=== PATIENT | female | born 1945 | race Caucasian/White ===

== ENCOUNTER 2024-03-26 18:58 | Inpatient (IN) | payer MEDICARE ==
[2024-03-26] MEDS ORDERED: EPINEPHrine 1 MG/ML VIAL ONE (19:02)
[2024-03-26] MEDS ORDERED: DOPamine/D5W 400 mg/250 ml PREMIX ONE (19:06)
[2024-03-26] MEDS ORDERED: Atropine Sulfate 1 mg/10 ml Syringe ONE (19:06)
[2024-03-26] MEDS ORDERED: Lidocaine 1% PF 5 ML VIAL ONE (19:31)
[2024-03-26] MEDS ORDERED: Ondansetron PF 4 MG/2 ML Vial ONE ×2 (19:52→22:13)
[2024-03-26] MEDS ORDERED: Aspirin Chewable 81 MG TAB ONE (19:52)
[2024-03-26 20:03] LABS: #Basophils 0.05 10x3/uL (0.0-0.2); %Basophils 0.5 % (0.0-1.0); %Eosinophils 0.9 % (0.0-10.0); %Lymphocytes 20.8 % (21.0-51.0); %Monocytes 5.7 % (0.0-10.0); %Neutrophils 71.7 % (42.0-75.0); Hematocrit 39.2 % (36.0-47.0); Hemoglobin 12.8 g/dL (12.0-16.0); Mean Corpuscular HGB CONC 32.7 g/dL (32.0-36.0); Platelet Count 241 10x3/uL (130-400); RBC Distribution Width 14.5 % (11.5-14.5); Red Blood Cell (RBC) Count 4.26 mill/uL (4.20-5.40)
[2024-03-26 20:23] LABS: ALT (SGPT) 39 U/L (8-55); AST (SGOT) 35 U/L (5-34); Albumin 3.5 g/dL (3.4-4.8); Alkaline Phosphatase 89 U/L (40-110); Anion Gap 15 mmol/L (10-20); BUN (Urea Nitrogen) 16 mg/dL (9.8-20.1); Bilirubin, Total 0.4 mg/dL (0.2-1.2); Calc. Creatinine Clearance 0 mL/min (70-130); Calcium 8.7 mg/dL (7.8-10.44); Carbon Dioxide 21 mmol/L (23-31); Chloride 106 mmol/L (98-107); Estimated GFR 61; Globulin 2.9 g/dL (2.4-3.5); Glucose 193 mg/dL (83-110); Potassium 3.5 mmol/L (3.5-5.1); Protein, Total 6.4 g/dL (5.8-8.1); Sodium 138 mmol/L (136-145)
[2024-03-26 20:34] LABS: Troponin I 0.776 ng/mL (< 0.028)
[2024-03-26] MEDS ORDERED: Aspirin 300 MG Suppository ONE (20:40)
[2024-03-26] MEDS ORDERED: Heparin 25,000 units/D5W 0 ML ONE (20:40)
[2024-03-26 21:03] LABS: Magnesium 1.8 mg/dL (1.6-2.6)
[2024-03-26 21:52] LABS: Prothrombin Time 13.2 sec (12.0-14.7)
[2024-03-26 21:53] LABS: PTT 32.8 sec (22.9-36.1)
[2024-03-26] MEDS ORDERED: Acetaminophen 650 MG/20.3 ML UDCUP PO PRN (22:48)
[2024-03-26] MEDS ORDERED: Electrolyte Replacement Protocol 1 EACH IVPB SCH (22:48)
[2024-03-26] MEDS ORDERED: Acetaminophen 650 MG Suppository PR PRN (22:48)
[2024-03-26] MEDS ORDERED: Ondansetron ODT 4 MG TAB PO PRN (22:51)
[2024-03-26] MEDS ORDERED: DOBUTamine 500 mg/250 ml 250 ML IVPB SCH (23:30)
[2024-03-27 00:29] VITALS: BMI 33.7
[2024-03-27 00:37] LABS: Troponin I 0.927 ng/mL (< 0.028)
[2024-03-27] MEDS: Dextrose 5%-Lactated Ringers 1,000 ML IV SCH (00:59)
[2024-03-27] MEDS: DOPamine 400 MG/D5W 250 ML 250 ML IVPB SCH (01:11)
[2024-03-27 02:43] LABS: Troponin I 0.941 ng/mL (< 0.028)
[2024-03-27] MEDS: Promethazine HCl 12.5 MG in Sodium Chloride 0.9% 50 ML IVPB PRN (03:04)
[2024-03-27] MEDS ORDERED: Dextrose 50% Abboject 50 ML SYRINGE SLOW IVP PRN (04:37)
[2024-03-27] MEDS ORDERED: Glucagon 1 MG/ML KIT IM PRN (04:37)
[2024-03-27] MEDS ORDERED: Dextrose 5% in Water 1,000 ML IV PRN (04:37)
[2024-03-27 05:10] LABS: Anion Gap 19 mmol/L (10-20)
[2024-03-27 05:13] LABS: BUN (Urea Nitrogen) 21 mg/dL (9.8-20.1); Calc. Creatinine Clearance 32 mL/min (70-130); Calcium 8.7 mg/dL (7.8-10.44); Carbon Dioxide 20 mmol/L (23-31); Chloride 106 mmol/L (98-107); Estimated GFR 26; Glucose 268 mg/dL (83-110); Sodium 141 mmol/L (136-145)
[2024-03-27] MEDS: Ondansetron PF 4 MG/2 ML Vial IVP PRN (05:23)
[2024-03-27] MEDS: Insulin Lispro 100 UNIT/ML 10 ML VIAL SC PRN (05:27)
[2024-03-27] MEDS: Acetaminophen 650 MG Suppository PR PRN (05:30)
[2024-03-27 05:42] LABS: #Basophils Less than 0.03 10x3/uL (0.0-0.2); #Eosinphils Less than 0.03 10x3/uL (0.0-0.7); %Basophils 0.1 % (0.0-1.0); %Lymphocytes 9.2 % (21.0-51.0); %Monocytes 6.2 % (0.0-10.0); Hematocrit 38.6 % (36.0-47.0); Hemoglobin 12.4 g/dL (12.0-16.0); Mean Corpuscular HGB CONC 32.1 g/dL (32.0-36.0); Mean Corpuscular Hemoglobin 29.5 pg (27.0-31.0); Mean Corpuscular Volume 91.9 fL (78.0-98.0); Mean Platelet Volume 9.6 fL (7.4-10.4); Platelet Count 299 10x3/uL (130-400); RBC Distribution Width 14.6 % (11.5-14.5)
[2024-03-27] MEDS: Lactated Ringer's 1,000 ML IV SCH (06:35)
[2024-03-27] MEDS: Famotidine/PF 20 mg/2ml Vial SLOW IVP SCH (08:27)
[2024-03-27] MEDS: Magnesium 2 GM/50 ML(in water) 2 GM in Premix 1 BAG IVPB SCH (08:27)
[2024-03-27] MEDS ORDERED: CEFAZOLIN 1 GM VIAL ONE (09:26)
[2024-03-27] MEDS ORDERED: Gentamicin 80 MG/2 ML VIAL ONE (09:26)
[2024-03-27] MEDS ORDERED: CEFAZOLIN 2 GM VIAL ONE (09:27)
[2024-03-27] MEDS ORDERED: Midazolam HCl 2 mg/2 ml Vial ONE (10:31)
[2024-03-27] MEDS: Pantoprazole 40 MG VIAL IVP SCH (13:19)
[2024-03-27] MEDS: Haloperidol Lactate 5 MG/ML VIAL IM SCH ×2 (18:22→20:53)
[2024-03-27] MEDS: diphenhydrAMINE 50 MG/ML VIAL IVP SCH (22:31)
[2024-03-28] MEDS: Haloperidol Lactate 5 MG/ML VIAL IM SCH (01:01)
[2024-03-28 05:09] LABS: #Basophils Less than 0.03 10x3/uL (0.0-0.2); #Eosinphils Less than 0.03 10x3/uL (0.0-0.7); %Basophils 0.2 % (0.0-1.0); %Eosinophils 0.1 % (0.0-10.0); %Lymphocytes 14.2 % (21.0-51.0); %Monocytes 7.6 % (0.0-10.0); %Neutrophils 77.6 % (42.0-75.0); Hematocrit 33.7 % (36.0-47.0); Hemoglobin 11.1 g/dL (12.0-16.0); Mean Corpuscular HGB CONC 32.9 g/dL (32.0-36.0); Mean Corpuscular Hemoglobin 29.8 pg (27.0-31.0); Mean Corpuscular Volume 90.6 fL (78.0-98.0); Mean Platelet Volume 9.3 fL (7.4-10.4); Platelet Count 181 10x3/uL (130-400); RBC Distribution Width 14.5 % (11.5-14.5); Red Blood Cell (RBC) Count 3.72 mill/uL (4.20-5.40)
[2024-03-28 05:48] LABS: Anion Gap 13 mmol/L (10-20); BUN (Urea Nitrogen) 28 mg/dL (9.8-20.1); Calc. Creatinine Clearance 43 mL/min (70-130); Calcium 8.5 mg/dL (7.8-10.44); Carbon Dioxide 23 mmol/L (23-31); Chloride 108 mmol/L (98-107); Estimated GFR 35; Glucose 102 mg/dL (83-110); Potassium 4.2 mmol/L (3.5-5.1); Sodium 140 mmol/L (136-145)
[2024-03-28] MEDS: Thyroid 60 MG TAB PO SCH (08:25)
[2024-03-28] MEDS: Pantoprazole 40 MG VIAL IVP SCH (08:37)
[2024-03-28] MEDS: Atorvastatin Calcium 40 MG TAB PO SCH (08:37)
[2024-03-28] MEDS: Losartan 25 MG TAB PO SCH (11:14)
[2024-03-28] MEDS: Aspirin 81 mg Enteric Coated Tablet PO SCH (11:14)
[2024-03-28] MEDS: Acetaminophen 325 MG TAB PO PRN (21:44)
[2024-03-29 04:56] LABS: #Basophils 0.03 10x3/uL (0.0-0.2); %Basophils 0.4 % (0.0-1.0); %Eosinophils 1.6 % (0.0-10.0); %Lymphocytes 25.3 % (21.0-51.0); %Monocytes 8.3 % (0.0-10.0); Hematocrit 33.2 % (36.0-47.0); Hemoglobin 10.6 g/dL (12.0-16.0); Mean Corpuscular HGB CONC 31.9 g/dL (32.0-36.0); Mean Corpuscular Hemoglobin 29.5 pg (27.0-31.0); Mean Corpuscular Volume 92.5 fL (78.0-98.0); Mean Platelet Volume 9.7 fL (7.4-10.4); Platelet Count 193 10x3/uL (130-400); RBC Distribution Width 14.6 % (11.5-14.5); Red Blood Cell (RBC) Count 3.59 mill/uL (4.20-5.40)
[2024-03-29 05:23] LABS: Anion Gap 13 mmol/L (10-20); BUN (Urea Nitrogen) 25 mg/dL (9.8-20.1); Calc. Creatinine Clearance 61 mL/min (70-130); Calcium 8.6 mg/dL (7.8-10.44); Carbon Dioxide 22 mmol/L (23-31); Chloride 108 mmol/L (98-107); Estimated GFR 54; Glucose 80 mg/dL (83-110); Potassium 3.9 mmol/L (3.5-5.1); Sodium 139 mmol/L (136-145)
[2024-03-29] MEDS: Cephalexin 250 MG CAP PO SCH (09:27)
[2024-03-29] MEDS: Aspirin 81 mg Enteric Coated Tablet PO SCH (09:28)
[2024-03-29] MEDS: Pantoprazole DR 40 MG TAB PO SCH (09:31)
[2024-03-29] MEDS: Losartan 25 MG TAB PO SCH (09:31)
[2024-03-30] MEDS ORDERED: Non-Formulary Item 1 EACH (Losartan Potassium [Losartan Potassium] 100 MG Tablet) PO SCH (09:00)
[2024-03-30] MEDS: hydrALAZINE 25 MG TAB PO SCH (16:08)
[2024-03-30] MEDS: Sertraline 100 MG TAB PO SCH (20:43)
[2024-03-30] MEDS: Metoprolol Tartrate 25 MG TAB PO SCH (20:43)
[2024-03-31 04:36] LABS: Hematocrit 34.8 % (36.0-47.0); Hemoglobin 11.4 g/dL (12.0-16.0); Mean Corpuscular HGB CONC 32.8 g/dL (32.0-36.0); Mean Corpuscular Hemoglobin 28.9 pg (27.0-31.0); Mean Corpuscular Volume 88.3 fL (78.0-98.0); Mean Platelet Volume 9.2 fL (7.4-10.4); Platelet Count 218 10x3/uL (130-400); RBC Distribution Width 13.9 % (11.5-14.5); Red Blood Cell (RBC) Count 3.94 mill/uL (4.20-5.40)
[2024-03-31 04:53] LABS: Anion Gap 14 mmol/L (10-20); BUN (Urea Nitrogen) 13 mg/dL (9.8-20.1); Calc. Creatinine Clearance 88 mL/min (70-130); Calcium 8.5 mg/dL (7.8-10.44); Carbon Dioxide 22 mmol/L (23-31); Chloride 108 mmol/L (98-107); Estimated GFR 83; Glucose 96 mg/dL (83-110); Potassium 3.6 mmol/L (3.5-5.1); Sodium 140 mmol/L (136-145)
[2024-03-31] MEDS: Furosemide 20 MG (2 mL) VIAL SLOW IVP SCH (10:14)
[2024-03-31] MEDS: Metoprolol Tartrate 25 MG TAB PO SCH (10:15)
[2024-03-31] MEDS: Potassium Chloride 20 MEQ TAB PO SCH (10:16)
[2024-03-31] MEDS ORDERED: Ipratropium/Albuterol 3 ML NEB NEB PRN (11:35)
[2024-03-31] MEDS: Ipratropium/Albuterol 3 ML NEB NEB SCH (14:02)
[2024-04-01] MEDS: Potassium Chloride 20 MEQ TAB PO SCH (08:14)
[2024-04-01] MEDS: Amlodipine 10 MG TAB PO SCH (10:25)
[2024-04-01] MEDS: hydrALAZINE 25 MG TAB PO SCH ×2 (10:26→15:06)
[2024-04-02] MEDS: Amlodipine 10 MG TAB PO SCH (08:58)
[2024-04-02 11:52] VITALS: BMI 33.8
[2024-04-03 12:57] VITALS: BP 124/87; TEMP 97.8
== END 2024-04-03 13:15 | disposition home or self-care (01) | DRG 242 ==
LOC: EDBD 18:58 → ERS 18:58 → CCU 21:41 → 2NO 03-28 12:31
PROVIDERS: ADMIT Student in an Organized Health Care Education/Training Program; ATTEND Internal Medicine
PROC: 0JH606Z Insertion of Pacemaker, Dual Chamber into Chest Subcutaneous Tissue and Fascia, Open Approach (ICD-10-PCS; principal; 2024-03-28)
PROC: 02H63JZ Insertion of Pacemaker Lead into Right Atrium, Percutaneous Approach (ICD-10-PCS; 2024-03-28)
PROC: 02HK3JZ Insertion of Pacemaker Lead into Right Ventricle, Percutaneous Approach (ICD-10-PCS; 2024-03-28)
DX: I44.2 Atrioventricular block, complete (principal); G93.41 Metabolic encephalopathy; I21.A1 Myocardial infarction type 2; F03.93 Unspecified dementia, unspecified severity, with mood disturbance; N17.9 Acute kidney failure, unspecified; R00.1 Bradycardia, unspecified; E03.9 Hypothyroidism, unspecified; I25.10 Atherosclerotic heart disease of native coronary artery without angina pectoris; I48.0 Paroxysmal atrial fibrillation; I12.9 Hypertensive chronic kidney disease with stage 1 through stage 4 chronic kidney disease, or unspecified chronic kidney disease; N18.9 Chronic kidney disease, unspecified; F32.A Depression, unspecified; Z66 Do not resuscitate; E78.5 Hyperlipidemia, unspecified; E87.70 Fluid overload, unspecified; R06.02 Shortness of breath; I73.9 Peripheral vascular disease, unspecified; Z95.1 Presence of aortocoronary bypass graft; Z90.49 Acquired absence of other specified parts of digestive tract; Z91.018 Allergy to other foods; Z90.710 Acquired absence of both cervix and uterus; Z79.899 Other long term (current) drug therapy
CPT/HCPCS: 33208; 36415; 36416; 70450; 71045; 80048; 80053; 83735; 83880; 84443; 84484; 85025; 85027; 85610; 85730; 93005; 93798; 99152; 99153; C1785; C1898; C9113; J0171; J0461; J0690; J1200; J1265; J1580; J1630; J1644; J1815; J1940; J2250; J2405; J2550; J3475; J7120; S0028

== ENCOUNTER 2025-04-19 17:51 | Emergency (ER) | payer MEDICARE ==
[~2025-04-19 17:51] MED LIST: Iopamidol-370 76% 500 ML MDV (1 ML CHARGE) ONE
[2025-04-19 19:08] LABS: #Basophils 0.04 10x3/uL (0.0-0.2); #Eosinophils 0.15 10x3/uL (0.0-0.7); #Monocytes 0.56 10x3/uL (0.11-0.59); #Neutrophils 6.37 10x3/uL (1.40-6.50); %Basophils 0.4 % (0.0-1.0); %Eosinophils 1.6 % (0.0-10.0); %Lymphocytes 22.5 % (21.0-51.0); %Monocytes 6.0 % (0.0-10.0); %Neutrophils 68.9 % (42.0-75.0); Hematocrit 38.4 % (36.0-47.0); Hemoglobin 12.7 g/dL (12.0-16.0); Mean Corpuscular Hemoglobin 30.1 pg (27.0-31.0); Mean Corpuscular Volume 91.0 fL (78.0-98.0); Platelet Count 235 10x3/uL (130-400); Red Blood Cell (RBC) Count 4.22 mill/uL (4.20-5.40); White Blood Cell (WBC) Count 9.27 10x3/uL (4.8-10.8)
[2025-04-19 19:25] LABS: ALT (SGPT) 35 U/L (Less than 34); AST (SGOT) 35 U/L (11-34); Albumin 3.7 g/dL (3.1-4.5); Alkaline Phosphatase 78 U/L (40-110); Anion Gap 11 mmol/L (10-20); BUN (Urea Nitrogen) 14 mg/dL (9.8-20.1); Bilirubin, Total 0.4 mg/dL (0.3-1.2); Calc. Creatinine Clearance 0 mL/min (70-130); Calcium 8.6 mg/dL (7.8-10.44); Carbon Dioxide 27 mmol/L (23-31); Chloride 106 mmol/L (98-107); Globulin 2.7 g/dL (2.4-3.5); Glucose 115 mg/dL (83-110); Potassium 3.2 mmol/L (3.5-5.1); Sodium 141 mmol/L (136-145)
[2025-04-19] MEDS ORDERED: LevoFLOXacin 750 mg/D5W 150 ml Premix Bag ONE (19:51)
[2025-04-19 20:33] LABS: Troponin I 0.016 ng/mL (< 0.028)
== END 2025-04-19 22:57 | disposition home or self-care (01) ==
LOC: ERS 17:51
DX: J18.9 Pneumonia, unspecified organism (principal); I10 Essential (primary) hypertension; Z95.0 Presence of cardiac pacemaker; Z95.1 Presence of aortocoronary bypass graft; Z95.5 Presence of coronary angioplasty implant and graft
CPT/HCPCS: 70450; 71045; 71275; 80053; 83605; 84484; 85025; 93005; 96365; 96366; 96375; 99285; J1956; J2919; Q9967; J7620